=== PATIENT | male | born 1960 | race American Indian/Alaskan Native ===

== ENCOUNTER 2020-10-29 00:59 | Emergency (ER) | payer SELFPAY | END 2020-10-29 05:15 | disposition left against medical advice (07) | LOC: ED 00:59 | DX: Z00.8 Encounter for other general examination (principal); Z53.21 Procedure and treatment not carried out due to patient leaving prior to being seen by health care provider ==

== ENCOUNTER 2020-10-30 14:39 | Emergency (ER) | payer SELFPAY ==
[2020-10-30 15:38] VITALS: BP 161/104
== END 2020-10-30 18:00 | disposition left against medical advice (07) ==
LOC: ED 14:39
DX: Z00.8 Encounter for other general examination (principal); Z53.21 Procedure and treatment not carried out due to patient leaving prior to being seen by health care provider

== ENCOUNTER 2021-06-30 00:06 | Emergency (ER) | payer MEDICARE ==
[2021-06-30] MEDS ORDERED: KETOROLAC 60 MG/2 ML INJ IM ONE (07:00)
[2021-06-30] MEDS ORDERED: dexAMETHasone 20 MG/5 ML VIAL IM ONE (07:00)
--- NOTE | 2021-06-30 07:01 | Emergency Department Report ---
ED Back Pain/Injury HPI - General Chief Complaint: Back Pain/Injury Stated Complaint: BACK PAIN Time Seen by Provider: 06/30/21 06:43 Source: patient Limitations: No Limitations - History of Present Illness Initial Comments: 61-year-old male with a history of hypertension, hyperlipidemia, chronic low back pain status post L5-S1 fusion in 2017, alcohol abuse, and drug abuse (last used cocaine a few days ago) presents to the ER today with complaints of exacerbation of his low back pain. Patient states that after his fusion in 2017 he had been having pain off and on which was being managed by a group called [facility] but he states that when he lost his insurance he was not able to follow-up which has been "a while". He states that he recently got approved for Medicare but has not made an appointment for follow-up as yet. He states that his pain flared up 2 days ago. Pain is mainly in his lower back. Pain is worse with certain positions and movement. He states that he has been doing a lot more walking, and recently had a long car ride which may have triggered his back pain. He denies any radiation of the pain. He denies any bowel or bladder incontinence. He denies any saddle anesthesia. He denies any lower extremity numbness tingling or weakness. He denies any fever or chills. He states that he has been trying [id number] medication without much relief. Complaint: back pain -: days(s) - Related Data Previous Rx's Medication Instructions Recorded Last Taken Type Ketorolac [Toradol] 10 mg PO Q6H PRN #20 tab 06/30/21 Unknown Rx methOCARBAMOL [Robaxin TAB] 500 mg PO Q6H PRN #30 tab 06/30/21 Unknown Rx methylPREDNISolone [Medrol 4MG 4 mg PO DAILY #1 pack 06/30/21 Unknown Rx DOSEPAK (21 tabs)] Allergies Allergy/AdvReac Type Severity Reaction Status Date / Time Penicillins Allergy Unknown Verified 10/30/20 15:34 ED Review of Systems ROS: Stated complaint: BACK PAIN Other details as noted in HPI Comment: All other systems reviewed and negative Constitutional: denies: chills, diaphoresis, fever, malaise, weakness Eyes: denies: eye pain, eye discharge, vision change ENT: denies: ear pain, throat pain, dental pain, hearing loss, epistaxis, congestion Respiratory: denies: cough, shortness of breath, SOB with exertion, SOB at rest, wheezing Cardiovascular: denies: chest pain, palpitations, dyspnea on exertion, edema, syncope, paroxysmal nocturnal dyspnea Endocrine: no symptoms reported Gastrointestinal: denies: abdominal pain, nausea, diarrhea, constipation, hematemesis Genitourinary: denies: urgency, dysuria, frequency, hematuria, discharge, testicular pain, testicular mass Musculoskeletal: back pain. denies: joint swelling, arthralgia, myalgia Skin: denies: rash, lesions, change in color, change in hair/nails, pruritus Neurological: denies: headache, weakness, numbness, paresthesias, confusion, abnormal gait Psychiatric: denies: anxiety, depression, auditory hallucinations, visual hallucinations, homicidal thoughts, suicidal thoughts Hematological/Lymphatic: denies: easy bleeding, easy bruising, swollen glands ED Past Medical Hx - Past Medical History Hx Hypertension: Yes Hx Psychiatric Treatment: Yes (depression) - Surgical History Additional Surgical History: back surgery - Medications Home Medications: Home Medications Medication Instructions Recorded Confirmed Last Taken Type Ketorolac [Toradol] 10 mg PO Q6H PRN #20 tab 06/30/21 Unknown Rx methOCARBAMOL [Robaxin TAB] 500 mg PO Q6H PRN #30 tab 06/30/21 Unknown Rx methylPREDNISolone [Medrol 4MG 4 mg PO DAILY #1 pack 06/30/21 Unknown Rx DOSEPAK (21 tabs)] ED Physical Exam - General Limitations: No Limitations General appearance: alert, in no apparent distress - Head Head exam: Present: atraumatic, normocephalic, normal inspection - Neck Neck exam: Present: normal inspection, full ROM. Absent: meningismus - Respiratory Respiratory exam: Present: normal lung sounds bilaterally - Cardiovascular Cardiovascular Exam: Present: regular rate, normal rhythm, normal heart sounds - GI/Abdominal GI/Abdominal exam: Present: soft. Absent: distended, tenderness, guarding, rebound - Back Exam Back exam: Present: normal inspection (Healed surgical scar noted), other (No apparent tenderness to palpation to to the paraspinal muscles not of vertebrae along the lumbar spine. Patient pain is more on range of motion of his lumbar spine). Absent: full ROM (Range of motion of the lumbar spine mildly reduced due to pain.), CVA tenderness (R), CVA tenderness (L) - Neurological Exam Neurological exam: Present: alert, oriented X3, CN II-XII intact, normal gait - Psychiatric Psychiatric exam: Present: normal affect, normal mood - Skin Skin exam: Present: intact ED Course Vital Signs 06/30/21 06/30/21 06/30/21 00:15 07:43 08:05 Temperature 98.5 F Pulse Rate 115 H 101 H Respiratory 19 20 18 Rate Blood Pressure 133/106 143/95 O2 Sat by Pulse 97 98 Oximetry ED Medical Decision Making - Medical Decision Making The patient presented with exacerbation of his low back pain. The patient is resting comfortably and , is alert, talkative, interactive and in no distress. The patient is neurologically intact and is ambulatory in the ED. the patient has no fever, no bowel or bladder incontinence, no saddle anesthesia and is otherwise alert and well-appearing. His history, physical examination and diagnostic testing does not suggest the presence of acute spinal epidural abscess, acute epidural bleed, cauda equina syndrome, abdominal/thoracic aortic aneurysm, aortic dissection, sepsis or other acute process requiring further testing, treatment or consultation in the emergency department. Repeat The vital signs have been stable. The patient condition is stable and appropriate for discharge. The patient will pursue further outpatient evaluation with the primary care physician or other designated or consulting physician as indicated in the discharge instructions. Critical care attestation.: If time is entered above; I have spent that time in minutes in the direct care of this critically ill patient, excluding procedure time. ED Disposition Clinical Impression: Acute exacerbation of chronic low back pain Disposition: HOME / SELF CARE / HOMELESS Is pt being admited?: No Does the pt Need Aspirin: No Condition: Stable Instructions: Chronic Back Pain, [id number] Additional Instructions: I recommend that you take the medrol dose pack, the robaxin and the toradol as prescribed for your pain. Follow up with your residential support specialist at [facility] in [place] or you can follow up with one listed on d/c instructions. I recommend avoid illicit drugs and alcohol and follow up with detox facility that you were provided. Return to ED if worse Prescriptions: methylPREDNISolone [Medrol 4MG DOSEPAK (21 tabs)] 4 mg PO DAILY #1 pack methOCARBAMOL [Robaxin TAB] 500 mg PO Q6H PRN #30 tab PRN Reason: Spasms Ketorolac [Toradol] 10 mg PO Q6H PRN #20 tab PRN Reason: Pain Referrals: TAWANNA CHAVEZ MD [Primary Care Provider] - 3-5 Days Forms: Work/School Release Form(ED) Time of Disposition: 07:04
[2021-06-30 08:07] VITALS: BP 143/95
== END 2021-06-30 08:07 | disposition home or self-care (01) ==
LOC: ED 00:06
DX: M54.50 Low back pain, unspecified (principal); I10 Essential (primary) hypertension; F32.A Depression, unspecified; Z91.09 Other allergy status, other than to drugs and biological substances
CPT/HCPCS: 96372; 99282; J1100; J1885